=== PATIENT | male | born 1945 | race Caucasian/White ===

== ENCOUNTER 2017-08-15 06:35 | Day surgery (SDC) | payer MEDICARE, OTHER ==
[~2017-08-15 06:35] MED LIST: Lactated Ringers 1,000 ML IV SCH; Lidocaine 1%/Sod Bicarbonate in NS 8.4% 1 ML Syringe PRN; Sodium Chloride 0.9% 10 ML Syringe FLUSH PRN
[2017-08-15] MEDS ORDERED: Propofol 200 MG/20 ML SDV ONE ×2 (07:16)
[2017-08-15] MEDS ORDERED: Ketamine 500 mg/10 ML MDV ONE (07:16)
[2017-08-15] MEDS ORDERED: fentaNYL 100 MCG/2 ML SDV ONE (07:16)
[2017-08-15] MEDS ORDERED: Lidocaine 1% 4 ML ONE (07:20)
--- NOTE | 2017-08-15 07:25 | PCM.PREANE ---
Preanesthetic Assessment - Procedure Proposed Procedure: Colonoscopy - Anesthesia/Transfusion/Family Hx Anesthesia History: Prior Anesthesia Without Reaction Family History of Anesthesia Reaction: No Transfusion History: No Prior Transfusion(s) Intubation History: Unknown - Review of Systems General: No Symptoms Pulmonary: No Symptoms Cardiovascular: No Symptoms Gastrointestinal: Abdominal Pain (Pain at his umbillicus this morning.) Neurological: No Symptoms Other: Reports: Diabetes, Neck Pain (Ankalosing Spondylitis) - Physical Assessment NPO Status Date: 08/14/17 NPO Status Time: 23:59 Pulse: 110 O2 Sat by Pulse Oximetry: 97 Respiratory Rate: 16 Blood Pressure: 154/90 Temperature: 36.4 C Weight: 89 kg ASA Class: 3 Mental Status: Alert & Oriented x3 Airway Class: Mallampati = 3 Dentition: Reports: Dentures (Upper and Lower) Thyro-Mental Finger Breadths: 2 Mouth Opening Finger Breadths: 3 ROM/Head Extension: Limited/Partial Lungs: Clear to Auscultation, Normal Respiratory Effort Cardiovascular: Regular Rate, Regular Rhythm - Lab Values: Blood Glucose 152 per patient at home - Allergies Allergies/Adverse Reactions: Allergies Allergy/AdvReac Type Severity Reaction Status Date / Time No Known Allergies Allergy Verified 08/14/17 11:36 - Acknowledgements Anesthesia Type Planned: MAC Pt an Appropriate Candidate for the Planned Anesthesia: Yes Alternatives and Risks of Anesthesia Discussed w Pt/Guardian: Yes Pt/Guardian Understands and Agrees with Anesthesia Plan: Yes PreAnesthesia Questionnaire HEENT History: Reports: Other (See Below) Other HEENT History: anterior synechiae Cardiovascular History: Reports: Blood Clots/VTE/DVT, High Cholesterol, Hypertension, RI, Other (See Below) Other Cardiovascular History: aytpical chest pain, palpitations Respiratory History: Reports: Asthma Gastrointestinal History: Reports: Chronic Diarrhea, Colon Polyp, Diverticulosis , GERD, Pancreatitis, PUD, Other (See Below) Other Gastrointestinal History: duodenal ulcers Genitourinary History: Reports: Other (See Below) Other Genitourinary History: right nephrectomy, kidney cancer [employer] History: Reports: None Musculoskeletal History: Reports: Other (See Below) Other Musculoskeletal History: ankylosing spondylitis, kyphosis, left fuentes's cyst Psychiatric History: Reports: None Endocrine/Metabolic History: Reports: Diabetes, Type II Hematologic History: Reports: None Immunologic History: Reports: None Oncologic (Cancer) History: Reports: Renal - Past Surgical History Head Surgeries/Procedures: Reports: None HEENT Surgical History: Reports: Cataract Surgery Cardiovascular Surgical History: Reports: Coronary Artery Bypass Respiratory Surgical History: Reports: None GI Surgical History: Reports: Cholecystectomy, Colonoscopy Female Surgical History: Reports: None Male Surgical History: Reports: None Endocrine Surgical History: Reports: None Neurological Surgical History: Reports: Lumbar Spine Musculoskeletal Surgical History: Reports: None Oncologic Surgical History: Reports: None Dermatological Surgical History: Reports: Skin Graft - SUBSTANCE USE Smoking Status *Q: Former Smoker Recreational Drug Use History: No - HOME MEDS Home Medications: Home Meds Acetaminophen [Tylenol] 650 mg PO Q6H PRN 08/14/17 [History] Aspirin [Ecotrin] 81 mg PO DAILY 08/14/17 [History] Cholecalciferol (Vitamin D3) [Vitamin D3] 2,000 unit PO DAILY 08/14/17 [History] Hydrochlorothiazide 25 mg PO DAILY 08/14/17 [History] Lisinopril 40 mg PO DAILY 08/14/17 [History] Metoprolol Tartrate 25 mg PO DAILY 08/14/17 [History] Potassium Gluconate 99 mg PO DAILY 08/14/17 [History] atorvaSTATin Calcium [Atorvastatin Calcium] 80 mg PO DAILY 08/14/17 [History] glipiZIDE [Glucotrol] 5 mg PO DAILY 08/14/17 [History] metFORMIN HCl [Metformin HCl] 1,000 mg PO DAILY 08/14/17 [History] - CURRENT (IN HOUSE) MEDS Current Meds: Current Medications Lactated Ringer's (Ringers, Lactated) 1,000 mls @ 125 mls/hr IV ASDIRECTED MANUEL Stop: 08/15/17 23:00 Lidocaine/Sodium Bicarbonate (Buffered Lidocaine 1% In Ns 8.4%) 0.25 ml .XX ONETIME PRN PRN Reason: Prior to IV Start Stop: 08/15/17 18:00 Sodium Chloride (Saline Flush) 10 ml FLUSH ASDIRECTED PRN PRN Reason: Keep Vein Open Stop: 08/15/17 18:00 Discontinued Medications Fentanyl (Sublimaze) Confirm Administered Dose 100 mcg .ROUTE .STK-MED ONE Stop: 08/15/17 07:17 Lidocaine HCl (Xylocaine-Mpf 1%) Confirm Administered Dose 4 mls @ as directed .ROUTE .STK-MED ONE Stop: 08/15/17 07:21 Ketamine HCl (Ketalar) Confirm Administered Dose 500 mg .ROUTE .STK-MED ONE Stop: 08/15/17 07:17 Propofol (Diprivan 20 Ml) Confirm Administered Dose 200 mg .ROUTE .STK-MED ONE Stop: 08/15/17 07:17 Propofol (Diprivan 20 Ml) Confirm Administered Dose 200 mg .ROUTE .STK-MED ONE Stop: 08/15/17 07:17
[2017-08-15] MEDS ORDERED: Ondansetron 4 MG/2 ML SDV ONE (08:46)
--- NOTE | 2017-08-15 08:54 | PCM.OPNOTE ---
- General Post-Op/Procedure Note Date of Surgery/Procedure: 08/15/17 Operative Procedure(s): colonoscopy to cecum Pre Op Diagnosis: positive FIT test Post-Op Diagnosis: Same Anesthesia Technique: MAC Primary Surgeon: Roberto Bishop EBL in mLs: 0 Complications: None Condition: Good
--- NOTE | 2017-08-15 08:57 | PCM48HPAN ---
Post Anesthesia Note - EVALUATION WITHIN 48HRS OF ANESTHETIC Vital Signs in Normal Range: Yes Patient Participated in Evaluation: Yes Respiratory Function Stable: Yes Airway Patent: Yes Cardiovascular Function Stable: Yes Hydration Status Stable: Yes Pain Control Satisfactory: Yes Nausea and Vomiting Control Satisfactory: Yes Mental Status Recovered: Yes
[2017-08-15] MEDS ORDERED: Phenylephrine 1% 10 MG/ML SDV ONE (09:05)
--- NOTE | 2017-08-16 09:06 | OR ---
DATE OF OPERATION: 08/15/2017 SURGEON: Roberto Bishop MD PREOPERATIVE DIAGNOSIS: Positive FIT test. POSTOPERATIVE DIAGNOSIS: Positive FIT test. OPERATION PERFORMED: Colonoscopy to the cecum. FINDINGS: Descending and sigmoid diverticulosis. There were no angiodysplasias, neoplasias, large tumor masses, ulcerations, or hemorrhoids. ANESTHESIA: Procedure done under IV sedation. DESCRIPTION OF PROCEDURE: The patient was taken to the operating room, placed in a supine position, connected to monitoring equipment, and given IV sedation. He was placed in left lateral position. Perianal area was inspected and was normal. Rectal exam showed good sphincter tone. A video Olympus colonoscope was then introduced into the rectum and threaded up without problem to the cecum, where the appendicular orifice and ileocecal valve were noted. Prep was excellent throughout the colon. [place] cleansing score grade A. The scope was slowly withdrawn showing the cecum, ascending colon, transverse colon, descending colon, sigmoid colon, and rectum. Retroflexed view was done. The patient tolerated the procedure. The above noted was found. Recommendation is colonoscopy as dictated by clinical situations. Will follow up in the clinic as needed. ESTIMATED BLOOD LOSS: MMODAL /[id number]
== END 2017-08-15 09:33 | disposition home or self-care (01) ==
LOC: JD.SDS 06:35
PROVIDERS: ATTEND Surgery
DX: K57.30 Diverticulosis of large intestine without perforation or abscess without bleeding (principal); J45.909 Unspecified asthma, uncomplicated; K21.9 Gastro-esophageal reflux disease without esophagitis; E78.00 Pure hypercholesterolemia, unspecified; I10 Essential (primary) hypertension; E11.9 Type 2 diabetes mellitus without complications; I25.2 Old myocardial infarction; Z86.718 Personal history of other venous thrombosis and embolism; Z85.528 Personal history of other malignant neoplasm of kidney; Z87.11 Personal history of peptic ulcer disease; Z87.891 Personal history of nicotine dependence; Z98.1 Arthrodesis status; Z98.49 Cataract extraction status, unspecified eye; Z95.1 Presence of aortocoronary bypass graft; Z90.5 Acquired absence of kidney; Z90.49 Acquired absence of other specified parts of digestive tract; Z98.890 Other specified postprocedural states; Z79.82 Long term (current) use of aspirin; Z79.84 Long term (current) use of oral hypoglycemic drugs; Z79.899 Other long term (current) drug therapy; Z88.8 Allergy status to other drugs, medicaments and biological substances
CPT/HCPCS: 45378; J2370; J2405; J3010; J7120; 00810; J2704

== ENCOUNTER 2023-03-15 06:37 | Day surgery (SDC) | payer MEDICARE, OTHER ==
[~2023-03-15 06:37] MED LIST changes: +Lidocaine 1%/Sod Bicarbonate in NS 8.4% 1 ML Syringe IDERM PRN; -Lidocaine 1%/Sod Bicarbonate in NS 8.4% 1 ML Syringe PRN; +Sodium Chloride 0.9% 10 ML Syringe FLUSH SCH
[2023-03-15] MEDS ORDERED: Propofol 200 MG/20 ML SDV ONE (07:55)
[2023-03-15] MEDS ORDERED: Lidocaine 1% 4 ML ONE (07:55)
== END 2023-03-15 09:35 | disposition home or self-care (01) ==
LOC: JD.SDS 06:37
PROVIDERS: ATTEND Specialist
DX: Z12.11 Encounter for screening for malignant neoplasm of colon (principal); K57.30 Diverticulosis of large intestine without perforation or abscess without bleeding; M19.90 Unspecified osteoarthritis, unspecified site; I65.29 Occlusion and stenosis of unspecified carotid artery; I25.10 Atherosclerotic heart disease of native coronary artery without angina pectoris; I10 Essential (primary) hypertension; E78.00 Pure hypercholesterolemia, unspecified; E11.51 Type 2 diabetes mellitus with diabetic peripheral angiopathy without gangrene; E55.9 Vitamin D deficiency, unspecified; Z88.8 Allergy status to other drugs, medicaments and biological substances; Z79.84 Long term (current) use of oral hypoglycemic drugs; Z79.82 Long term (current) use of aspirin; Z79.899 Other long term (current) drug therapy; Z90.49 Acquired absence of other specified parts of digestive tract; Z95.1 Presence of aortocoronary bypass graft; Z87.891 Personal history of nicotine dependence; Z80.0 Family history of malignant neoplasm of digestive organs
CPT/HCPCS: 45378; 82947; J2704; J7120; J3490

== ENCOUNTER 2025-09-07 09:55 | Emergency (ER) | payer OTHER ==
[2025-09-07] MEDS ORDERED: Sodium Chloride 0.9% 10 ML Syringe FLUSH PRN (10:21)
[2025-09-07 10:39] LABS: BASOPHILS ABSOLUTE AUTO 0.0 K/mm3 (0.0-0.2); BASOPHILS PERCENT AUTO 0.1 % (0.0-1.0); EOSINOPHILS ABSOLUTE AUTO 0.0 K/mm3 (0.0-0.4); EOSINOPHILS PERCENT AUTO 0.0 % (0.0-6.0); IMMATURE GRAN ABSOLUTE AUTO 0.02 K/mm3 (0.00-0.05); IMMATURE GRAN PERCENT AUTO 0.3 % (0.0-0.4); LYMPHOCYTES ABSOLUTE AUTO 0.7 K/mm3 (1.0-4.8); LYMPHOCYTES PERCENT AUTO 8.8 % (24.0-44.0); MEAN PLATELET VOLUME 11.3 fl (9.4-12.4); MONOCYTES ABSOLUTE AUTO 0.4 K/mm3 (0.0-0.8); MONOCYTES PERCENT AUTO 5.8 % (0.0-8.0); NEUTROPHILS ABSOLUTE AUTO 6.4 K/mm3 (1.8-7.7); NEUTROPHILS PERCENT AUTO 85.0 % (41.0-71.0); NRBC ABSOLUTE 0.00 (0.00-0.02); NRBC PERCENT 0.0 % (0.0-0.2); PLATELET COUNT,PLT 182 K/mm3 (150-400); RED BLOOD CELL COUNT 4.94 M/mm3 (4.52-5.90); WHITE BLOOD CELL COUNT,WBC 7.53 K/mm3 (3.9-11.3)
[2025-09-07 11:02] LABS: LACTIC ACID 1.8 mmol/L (0.4-2.0)
[2025-09-07 11:09] LABS: A/G RATIO 1.1 (1-2); ALANINE AMINOTRANSFERASE,ALT 54.0 U/L (16-63); ASPARTATE AMNIOTRANSFERASE,AST 33.0 U/L (15-37); BILIRUBIN TOTAL 0.5 mg/dL (0.2-1.0); BLOOD UREA NITROGEN,BUN 21.0 mg/dL (7-18); CARBON DIOXIDE,CO2 26.0 mEq/L (21-32); CHLORIDE,CL 101.0 mEq/L (98-107); CREATININE 1.5 mg/dL (0.7-1.3); EST CRCL DRUG DOSING (CG) 43.93 mL/min; ESTIMATED GFR 48.0 mL/min (>60); GLUCOSE RANDOM 245.0 mg/dL (70-99); POTASSIUM,K 4.0 mEq/L (3.5-5.1); PROTEIN TOTAL,TP 7.5 g/dl (6.4-8.2); SODIUM,NA 138.0 mEq/L (136-145); TROPONIN I HIGH SENSITIVITY 12.0 pg/mL (<=76); TSH 1.937 uIU/mL (0.358-3.74)
[2025-09-07 11:15] LABS: ETHANOL BLOOD MEDICAL 0.0 gm% (0.00)
[2025-09-07 12:29] LABS: APPEARANCE,URINE CLEAR (Clear); GLUCOSE,URINE NEGATIVE (Negative); OCCULT BLOOD,URINE NEGATIVE (Negative)
[2025-09-07 12:37] LABS: EPITHELIAL CELLS,URINE 0-5 /hpf (0-5)
== END 2025-09-07 13:00 | disposition home or self-care (01) ==
LOC: JD.ED 09:55
DX: B02.29 Other postherpetic nervous system involvement (principal); R53.81 Other malaise; E11.9 Type 2 diabetes mellitus without complications; Z79.82 Long term (current) use of aspirin; Z79.899 Other long term (current) drug therapy; Z90.49 Acquired absence of other specified parts of digestive tract; Z87.891 Personal history of nicotine dependence
CPT/HCPCS: 36415; 71045; 80053; 80307; 81001; 83605; 83735; 83880; 84443; 84484; 85025; 85379; 93005; 99285; J7030